=== PATIENT | female | born 1990 | race Caucasian/White ===

== ENCOUNTER → 2020-07-05 | Outpatient (CLI) | payer OTHER ==
[~2020-07-05] MED LIST: BENTYL 10MG CAP10 MG PO; KEFLEX CAP 500500 MG PO; NORFLEX 100 MG100 MG PO; OMNICEF 300 MG300 MG PO; PREDNISONE 50 M50 MG PO; PROTONIX40 MG PO; Voltaren Gel 1 % TOP; ZOFRAN ODT 4 MG4 MG PO; ZOFRAN ODT4 MG PO
== END ==
LOC: RAD 17:34
DX: M25.532 Pain in left wrist (principal)
CPT/HCPCS: 73100